=== PATIENT | female | born 1995 | race Caucasian/White ===

== ENCOUNTER 2021-01-16 13:14 | Emergency (ER) | payer OTHER, MEDICAID ==
[~2021-01-16] VITALS: Ht 152.4 cm; Wt 59.0 kg
[2021-01-16 13:30] VITALS: BP 121/82
--- NOTE | 2021-01-16 13:47 | RAD ---
EXAMINATION: XR HAND_LEFT 3 VIEWS CLINICAL HISTORY: 5th DIGIT SWELLING AND BRUISING AFTER FALL TECHNIQUE: XR HAND_LEFT 3 VIEWS Number of Images/Views: 3 COMPARISON: None FINDINGS: Oblique fracture through the base of the fifth proximal phalanx with mild to moderate apex dorsal ang ulation and dorsal displacement of the phalangeal shaft relative to the base. Mild foreshortening als o suggested on the lateral view. No definitive evidence of intra-articular extension. The fifth metat arsal base appears to remain in appropriate alignment at the fifth CMC joint. No evidence of addition al acute fracture. Soft tissue swelling along the ulnar aspect of the hand and in the small finger. IMPRESSION: Fifth proximal phalanx fracture with angulation and displacement as described. Electronically signed by: Eduar Wakefield DO (01/16/2021 1:45 PM) SHERYL
--- NOTE | 2021-01-16 14:27 | PHYS DOC ---
General Adult EDM: Chief Complaint: HAND PROBLEM HPI: HPI: Patient is a 25 year old female who presents with left hand/pinky pain. Tripped and fell yesterday onto her left pinky. Had swelling develop more overnight. Increasing pain today. Denies other injuries. No head strike, LOC. Review of Systems: Review of Systems: Constitutional: Denies fever or chills Eyes: Denies change in visual acuity HENT: Denies nasal congestion or sore throat Respiratory: Denies cough or shortness of breath Cardiovascular: Denies chest pain or edema GI: Denies abdominal pain, nausea, vomiting, bloody stools or diarrhea : Denies dysuria Musculoskeletal: Left hand/pinky pain Integument: Denies rash Neurologic: Denies headache, focal weakness or sensory changes Endocrine: Denies polyuria or polydipsia Lymphatic: Denies swollen glands Psychiatric: Denies depression or anxiety Physical Exam: PE: Constitutional: Well developed, well nourished, HENT: Normocephalic, atraumatic Eyes: conjunctiva normal, no discharge. [] Cardiovascular: Heart rate normal Lungs & Thorax: Normal work of Abdomen: Nondistended Skin: Warm, dry, no erythema, no rash --see extremity exam [] Back: No tenderness, no CVA tenderness. [] Extremities: Left hand with bruising over the fifth MCP extending into the pinky and the proximal portion of the fourth finger. Consents light touch to the distal fingers. Good cap refill in all 5 fingers. Limited range of motion of the pinky, cannot flex the pinky. Neurologic: Alert and oriented X 3, normal motor function, normal sensory function, no focal deficits noted. [] Psychologic: Affect normal, judgement normal, mood normal. [] EKG: EKG: [] Radiology/Procedures: Radiology/Procedures: Procedure: Closed reduction of left fifth proximal phalanx fracture Anesthesia: Lidocaine 2% without epinephrine was injected for digital nerve block on each side of the base of the fifth finger. Good effect was noted prior to attempted reduction. Reduction: Axial traction was placed in the finger, improved alignment was felt and visualized. Splint: Ulnar gutter splint was placed with Ortho-Glass. Ample padding was applied underneath. Wrapped in Carrillo bandage. Before and after splinting good distal cap refill was noted. Reduced sensation after splinting due to digital nerve block. Impressions: [address] [address] IMAGING REPORT Signed PATIENT: MARTHA CARNEY ACCOUNT: [id number] : 1995 LOCATION: ER AGE: 25 SEX: F EXAM STATUS: REG ER ORD. PHYSICIAN: VIOLET MANZANO MD REASON: 5th DIGIT SWELLING AND BRUISING AFTER FALL PROCEDURE: HAND LEFT 3V EXAMINATION: XR HAND_LEFT 3 VIEWS CLINICAL HISTORY: 5th DIGIT SWELLING AND BRUISING AFTER FALL TECHNIQUE: XR HAND_LEFT 3 VIEWS Number of Images/Views: 3 COMPARISON: None FINDINGS: Oblique fracture through the base of the fifth proximal phalanx with mild to moderate apex dorsal angulation and dorsal displacement of the phalangeal shaft relative to the base. Mild foreshortening also suggested on the lateral view. No definitive evidence of intra-articular extension. The fifth metatarsal base appears to remain in appropriate alignment at the fifth CMC joint. No evidence of additional acute fracture. Soft tissue swelling along the ulnar aspect of the hand and in the small finger. IMPRESSION: Fifth proximal phalanx fracture with angulation and displacement as described. Electronically signed by: Eduar Frias DO (01/16/2021 1:45 PM) [facility] DICTATED AND SIGNED BY: EDUAR FRIAS DO DATE: 01/16/21 1340 CC: VIOLET MANZANO MD; PCP,NO ~MTH0 0 Heart Score: C/O Chest Pain: No Risk Factors: Risk Factors: DM, Current or recent (<one month) smoker, HTN, HLP, family history of CAD, obesity. Risk Scores: Score 0 - 3: 2.5% MACE over next 6 weeks - Discharge Home Score 4 - 6: 20.3% MACE over next 6 weeks - Admit for Clinical Observation Score 7 - 10: 72.7% MACE over next 6 weeks - Early Invasive Strategies Course & Med Decision Making: Course & Med Decision Making Pertinent Labs and Imaging studies reviewed. (See chart for details) Patient is a 25-year-old female presents with left pinky pain after a fall yesterday. Has limited flexion, but sensation is intact. Good cap refill. X-ray shows a proximal fifth phalanx fracture with dorsal angulation displacement. Attempted reduction as above. Postreduction films show somewhat improved alignment. Was placed in an ulnar gutter splint. Will be provided with hand surgery follow-up. Vandana Disclaimer: Vandana Disclaimer: This electronic medical record was generated, in whole or in part, using a voice recognition dictation system. Departure Departure: Impression: Primary Impression: Proximal phalanx fracture of finger Disposition: HOME / SELF CARE / HOMELESS Condition: STABLE Referrals: PCP,NO (PCP) Additional Instructions: [facility] Hand Surgery: [phone] Please schedule appointment with hand surgery for follow-up appointment. For pain tylenol and ibuprofen are best used on a schedule. Please alternate between the two. -Tylenol 1000 mg every 6 hours (do not exceed 4000 mg in one day) -Ibuprofen 400 mg every 6 hours. Take with food. Do not take for more than 1 week. VIOLET MANZANO MD Jan 16, 2021 14:27
--- NOTE | 2021-01-16 14:43 | RAD ---
Left fifth finger 3 views. HISTORY: Post reduction 3 views were taken of the left fifth finger. There is a fracture of the proximal phalanx of the fifth finger. There has been a mild improvement in the angulation with persistent with angulation. IMPRESSION: 1. Fracture proximal phalanx left fifth finger. 2. Mild improvement but persistent angulation. Electronically signed by: Miguel Angel Valentin MD (01/16/2021 2:40 PM) [facility]
== END 2021-01-16 14:32 | disposition home or self-care (01) ==
LOC: ER 13:14
DX: S62.617A Displaced fracture of proximal phalanx of left little finger, initial encounter for closed fracture (principal); W01.0XXA Fall on same level from slipping, tripping and stumbling without subsequent striking against object, initial encounter; Y93.89 Activity, other specified; Y92.89 Other specified places as the place of occurrence of the external cause; Y99.8 Other external cause status
CPT/HCPCS: 26725; 73130; 73140; 99285